=== PATIENT | female | born 1945 | race African-American/Black ===

== ENCOUNTER 2022-12-03 10:09 | Inpatient (IN) | payer MEDICARE, OTHER ==
[2022-12-03] MEDS ORDERED: ACETAMINOPHEN 1000 MG/100 ML BAG IVPB ONE ×2 (10:55→17:29)
[2022-12-03] MEDS ORDERED: VANCOMYCIN 1 GM in D5W (PRE-DOCKED) 1,000 MG/250 ML IVPB ONE (11:26)
[2022-12-03] MEDS ORDERED: PIPERACILLIN/TAZOB 4.5 GM 4.5 GM in DEXTROSE 5%-WATER 100 ML IVPB ONE (11:26)
[2022-12-03] MEDS ORDERED: SODIUM CHLORIDE 0.9% 500 ML INFUS.BAG IV ONE ×2 (11:26→13:10)
[2022-12-03] MEDS ORDERED: ACETAMINOPHEN INJECTION 100 ML IVPB ONE ×2 (11:26→18:16)
[2022-12-03] MEDS ORDERED: NOREPINEPHRINE BITARTRATE 4 MG/4 ML ML IV ONE ×2 (11:28→11:29)
[2022-12-03 11:51] LABS: VENOUS BASE EXCESS -2.2 mmol/L (-2-2); VENOUS O2 SATURATION 57.1 % (70-80); VENOUS PCO2 57.1 mmHg (38-52); VENOUS PH 7.267 (7.310-7.410)
[2022-12-03 11:52] LABS: HEMATOCRIT 35.4 % (32.4-45.2); HEMOGLOBIN 11.3 GM/dL (10.7-15.3); MCH 27.3 pg (25.7-33.7); MCHC 31.9 g/dl (32.0-36.0); MEAN CELL VOLUME 85.5 fl (80-96); MEAN PLT VOLUME 9.9 fl (7.5-11.1); PLATELET COUNT 207 10^3/uL (134-434); RBC 4.14 M/mm3 (3.60-5.2); RDW 15.9 % (11.6-15.6); WHITE BLOOD COUNT 25.9 K/mm3 (4.0-10.0)
[2022-12-03 11:59] LABS: INR 1.46 (0.83-1.09); PROTHROMBIN TIME (PATIENT) 16.8 SEC (9.7-13.0)
[2022-12-03] MEDS ORDERED: NOREPINEPHRINE BITARTRATE 16,000 MCG in SODIUM CHLORIDE 484 ML IV SCH (12:00)
[2022-12-03 12:01] LABS: ACTIVATED PTT 23.7 SECONDS (25.2-36.5)
[2022-12-03 12:15] LABS: CHLORIDE 98 mmol/L (98-107); SODIUM 139 mmol/L (136-145)
[2022-12-03 12:17] LABS: CALCIUM 9.5 mg/dL (8.5-10.1)
[2022-12-03 12:18] LABS: ALBUMIN 2.9 g/dl (3.4-5.0); ANION GAP 16 MMOL/L (8-16); BLOOD UREA NITROGEN 59.3 mg/dL (7-18); CO2 24 mmol/L (21-32); GLUCOSE,RANDOM 101 mg/dL (74-106)
[2022-12-03 12:21] LABS: ANISOCYTOSIS 0; CREATININE 3.6 mg/dL (0.55-1.3); HELMET CELLS 0; HOWELL-JOLLY BODIES 0; MACROCYTOSIS 0; OVALOCYTE 0; ROULEAU 0; SGOT/AST 27 U/L (15-37); SGPT/ALT 36 U/L (13-61); SICKELED CELLS 0; TARGET CELLS 0; TEAR DROP CELLS 0; TOXIC GRANULATION 0
[2022-12-03 12:22] LABS: BILIRUBIN,TOTAL 0.4 mg/dL (0.2-1)
[2022-12-03 12:24] LABS: ALK PHOS 173 U/L (45-117)
[2022-12-03] MEDS ORDERED: NOREPINEPHRINE BITARTRATE 4,000 MCG in DEXTROSE 5%-WATER - 496 ML IV SCH (13:00)
[2022-12-03] MEDS ORDERED: NOREPINEPHRINE BITARTRATE/D5W 8 MG/250 ML BAG IVPB SCH (13:00)
[2022-12-03 13:04] LABS: LACTIC ACID 8.2 mmol/L (0.4-2.0)
[2022-12-03] MEDS ORDERED: VANCOMYCIN/WATER FOR INJ (PEG) 1,000 MG/200 ML BAG IVPB ONE (13:38)
[2022-12-03] MEDS ORDERED: PIPERACILLIN/TAZOB 4.5 GM 4.5 GM/100 ML BAG IVPB ONE (13:38)
[2022-12-03] MEDS ORDERED: SODIUM CHLORIDE 1,000 ML IV STA ×2 (14:31→15:41)
[2022-12-03] MEDS ORDERED: KCL 10 MEQ IVPB 20 MEQ/200 ML INFUS.BAG IVPB ONE (14:47)
[2022-12-03] MEDS: POTASSIUM CHLORIDE 10 MEQ PREMIX IVPB (POTASSIUM RIDER) IVPB SCH ×2 (15:00→19:18)
[2022-12-03 15:42] LABS: CALCIUM 8.6 mg/dL (8.5-10.1)
[2022-12-03 15:43] LABS: BLOOD UREA NITROGEN 60.9 mg/dL (7-18)
[2022-12-03] MEDS ORDERED: VASOPRESSIN 40 UNITS/100 ML BAG IV SCH (15:45)
[2022-12-03 15:46] LABS: CREATININE 3.6 mg/dL (0.55-1.3)
[2022-12-03 17:04] LABS: LACTIC ACID 6.1 mmol/L (0.4-2.0)
[2022-12-03] MEDS ORDERED: PIPERACILLIN/TAZOB 3.375 GM 3.375 GM in DEXTROSE 5%-WATER - 50 ML IVPB SCH (18:00)
[2022-12-03 19:49] LABS: EPI CELLS 27 /uL (0-25.1); HYALINE CASTS 16 /uL (0-3.1); URINE APPEARANCE CLOUDY; URINE BACTERIA 18 /uL (0-1359); URINE BILIRUBIN 1+ (NEGATIVE); URINE COLOR DK YELLOW; URINE GLUCOSE (UA) NEGATIVE (NEGATIVE); URINE KETONE TRACE (NEGATIVE); URINE LEUK ESTERASE NEGATIVE (NEGATIVE); URINE NITRITE NEGATIVE (NEGATIVE); URINE PROTEIN 2+ (NEGATIVE); URINE WBC 21 /uL (0-25.8)
[2022-12-03 19:53] LABS: URINE RBC 34 /uL (0-23.9)
[2022-12-03] MEDS ORDERED: LACTATED RINGERS SOLUTION 1000 ML INFUS.BAG IV ONE (20:18)
[2022-12-03] MEDS ORDERED: PIPERACILLIN/TAZOB 3.375 GM 3.375 GM/50 ML BAG IVPB ONE (20:22)
[2022-12-03] MEDS ORDERED: AZITHROMYCIN IVPB 500 MG/250 ML BAG IVPB ONE (20:22)
[2022-12-03] MEDS: AZITHROMYCIN IVPB 500 MG/250 ML BAG IVPB SCH (20:26)
[2022-12-03] MEDS: INSULIN SLIDING SCALE (NOVOLOG) 1 VIAL SQ SCH (20:47)
[2022-12-03] MEDS: VASOPRESSIN 40 UNITS/100 ML BAG IV SCH (20:47)
[2022-12-03] MEDS: PIPERACILLIN/TAZOB 3.375 GM 3.375 GM in DEXTROSE 5%-WATER - 50 ML IVPB SCH (21:38)
[2022-12-03] MEDS ORDERED: ALBUTEROL SO4 2.5/IPRATROPIUM 0.5 INH SOL 3 ML VIAL.NEB. NEB PRN (23:25)
[2022-12-04] MEDS ORDERED: NOREPINEPHRINE 0.9 % NACL 8 MG/250 ML BAG IVPB SCH (00:43)
[2022-12-04] MEDS: INSULIN SLIDING SCALE (NOVOLOG) 1 VIAL SQ SCH ×6 (00:47→22:00)
[2022-12-04] MEDS: HEPARIN NA (PORCINE) 5,000 UNITS/ML 1ML VIAL SQ SCH ×5 (00:47→22:00)
[2022-12-04] MEDS: PIPERACILLIN/TAZOB 3.375 GM 3.375 GM in DEXTROSE 5%-WATER - 50 ML IVPB SCH ×3 (03:02→17:36)
[2022-12-04 07:45] LABS: HEMOGLOBIN 10.3 GM/dL (10.7-15.3); MCH 27.3 pg (25.7-33.7); MCHC 32.1 g/dl (32.0-36.0); MEAN CELL VOLUME 84.9 fl (80-96); PLATELET COUNT 166 10^3/uL (134-434); RBC 3.77 M/mm3 (3.60-5.2); RDW 15.6 % (11.6-15.6)
[2022-12-04 07:51] LABS: WHITE BLOOD COUNT 34.1 K/mm3 (4.0-10.0)
[2022-12-04 07:57] LABS: CALCIUM 8.5 mg/dL (8.5-10.1)
[2022-12-04 07:58] LABS: ALBUMIN 2.5 g/dl (3.4-5.0); BLOOD UREA NITROGEN 55.2 mg/dL (7-18)
[2022-12-04 08:01] LABS: CREATININE 2.8 mg/dL (0.55-1.3); PHOSPHOROUS 5.9 mg/dL (2.5-4.9)
[2022-12-04 08:02] LABS: TOT PROT 5.6 g/dl (6.4-8.2)
[2022-12-04 08:03] LABS: BILIRUBIN,TOTAL 0.5 mg/dL (0.2-1)
[2022-12-04 08:07] LABS: LACTIC ACID 2.2 mmol/L (0.4-2.0)
[2022-12-04 08:48] LABS: ANISOCYTOSIS 0; HELMET CELLS 0; HOWELL-JOLLY BODIES 0; MACROCYTOSIS 0; OVALOCYTE 0; ROULEAU 0; SICKELED CELLS 0; TARGET CELLS 0; TEAR DROP CELLS 0; TOXIC GRANULATION 0
[2022-12-04] MEDS: AZITHROMYCIN IVPB 500 MG/250 ML BAG IVPB SCH (09:58)
[2022-12-04] MEDS: PANTOPRAZOLE SODIUM 40 MG VIAL IVPUSH SCH (09:58)
[2022-12-04] MEDS ORDERED: VANCOMYCIN/WATER 1,250 MG/250 ML BAG (RESTRICTED TO ID ONLY) IVPB SCH ×2 (10:00→14:30)
[2022-12-04 10:12] LABS: ARTERIAL BLD GAS O2 SATURATION 93.1 % (95-98); ARTERIAL BLOOD GAS BASE EXCESS -3.4 mmol/L (-2-2); ARTERIAL BLOOD GAS PO2 69.2 mmHg (80-100); ARTERIAL BLOOD GAS pH 7.347 (7.350-7.450)
[2022-12-04] MEDS ORDERED: LACTATED RINGERS SOLUTION 1,000 ML/1,000 ML INFUS.BAG IV SCH (11:30)
[2022-12-04] MEDS ORDERED: VANCOMYCIN/WATER FOR INJ (PEG) 1,000 MG/200 ML BAG IVPB ONE (13:00)
[2022-12-04] MEDS: CHLORHEXIDINE GLUCONATE 4% CLEANSER FOR DECOLONIZATION TP SCH (22:00)
[2022-12-04] MEDS: MUPIROCIN 2% TOPICAL OINTMENT FOR DECOLONIZATION NS SCH (22:00)
[2022-12-04] MEDS: VASOPRESSIN 40 UNITS/100 ML BAG IV SCH (23:25)
[2022-12-05] MEDS: PIPERACILLIN/TAZOB 3.375 GM 3.375 GM in DEXTROSE 5%-WATER - 50 ML IVPB SCH ×3 (02:00→17:37)
[2022-12-05] MEDS: INSULIN SLIDING SCALE (NOVOLOG) 1 VIAL SQ SCH ×4 (06:45→22:56)
[2022-12-05] MEDS: HEPARIN NA (PORCINE) 5,000 UNITS/ML 1ML VIAL SQ SCH ×3 (06:45→22:55)
[2022-12-05 08:40] LABS: HEMATOCRIT 30.3 % (32.4-45.2); HEMOGLOBIN 9.5 GM/dL (10.7-15.3); MCH 26.6 pg (25.7-33.7); MCHC 31.2 g/dl (32.0-36.0); MEAN CELL VOLUME 85.2 fl (80-96); MEAN PLT VOLUME 9.7 fl (7.5-11.1); PLATELET COUNT 141 10^3/uL (134-434); RBC 3.56 M/mm3 (3.60-5.2); RDW 16.1 % (11.6-15.6)
[2022-12-05 08:53] LABS: WHITE BLOOD COUNT 39.4 K/mm3 (4.0-10.0)
[2022-12-05 09:23] LABS: CALCIUM 8.7 mg/dL (8.5-10.1)
[2022-12-05 09:24] LABS: ALBUMIN 2.2 g/dl (3.4-5.0); BLOOD UREA NITROGEN 50.6 mg/dL (7-18); MAGNESIUM 2.4 mg/dL (1.8-2.4)
[2022-12-05] MEDS: MUPIROCIN 2% TOPICAL OINTMENT FOR DECOLONIZATION NS SCH ×2 (09:25→22:55)
[2022-12-05] MEDS: AZITHROMYCIN IVPB 500 MG/250 ML BAG IVPB SCH (09:25)
[2022-12-05] MEDS: PANTOPRAZOLE SODIUM 40 MG VIAL IVPUSH SCH (09:25)
[2022-12-05 09:27] LABS: CREATININE 1.8 mg/dL (0.55-1.3); PHOSPHOROUS 3.4 mg/dL (2.5-4.9)
[2022-12-05 09:28] LABS: BILIRUBIN,TOTAL 0.5 mg/dL (0.2-1); TOT PROT 5.3 g/dl (6.4-8.2)
[2022-12-05] MEDS: FUROSEMIDE 40 MG/4 ML INJECTABLE VIAL IVPUSH SCH (09:42)
[2022-12-05 10:29] LABS: ANISOCYTOSIS 0; HELMET CELLS 0; HOWELL-JOLLY BODIES 0; MACROCYTOSIS 0; OVALOCYTE 0; ROULEAU 0; SICKELED CELLS 0; TARGET CELLS 0; TEAR DROP CELLS 0; TOXIC GRANULATION 0
[2022-12-05] MEDS ORDERED: VANCOMYCIN/WATER FOR INJ (PEG) 1,000 MG/200 ML BAG IVPB ONE (12:36)
[2022-12-05] MEDS: CHLORHEXIDINE GLUCONATE 4% CLEANSER FOR DECOLONIZATION TP SCH (22:55)
[2022-12-06] MEDS: PIPERACILLIN/TAZOB 3.375 GM 3.375 GM in DEXTROSE 5%-WATER - 50 ML IVPB SCH ×3 (02:00→17:27)
[2022-12-06] MEDS: HEPARIN NA (PORCINE) 5,000 UNITS/ML 1ML VIAL SQ SCH ×3 (06:26→21:14)
[2022-12-06] MEDS: INSULIN SLIDING SCALE (NOVOLOG) 1 VIAL SQ SCH ×4 (06:27→21:21)
[2022-12-06 07:32] LABS: HEMATOCRIT 31.2 % (32.4-45.2); HEMOGLOBIN 9.8 GM/dL (10.7-15.3); MCH 26.7 pg (25.7-33.7); MCHC 31.4 g/dl (32.0-36.0); MEAN CELL VOLUME 85.1 fl (80-96); MEAN PLT VOLUME 9.9 fl (7.5-11.1); PLATELET COUNT 126 10^3/uL (134-434); RBC 3.67 M/mm3 (3.60-5.2); RDW 15.8 % (11.6-15.6)
[2022-12-06 07:56] LABS: CALCIUM 8.7 mg/dL (8.5-10.1)
[2022-12-06 08:00] LABS: CREATININE 1.2 mg/dL (0.55-1.3); PHOSPHOROUS 2.4 mg/dL (2.5-4.9)
[2022-12-06] MEDS: FUROSEMIDE 40 MG/4 ML INJECTABLE VIAL IVPUSH SCH (09:22)
[2022-12-06] MEDS: POLYETHYLENE GLYCOL (HEALTHYLAX) 3350 17 GM PACKET PO SCH ×2 (09:22→21:14)
[2022-12-06] MEDS: PANTOPRAZOLE SODIUM 40 MG VIAL IVPUSH SCH (09:23)
[2022-12-06] MEDS: AZITHROMYCIN IVPB 500 MG/250 ML BAG IVPB SCH (09:23)
[2022-12-06] MEDS: MUPIROCIN 2% TOPICAL OINTMENT FOR DECOLONIZATION NS SCH ×2 (11:23→21:14)
[2022-12-06] MEDS ORDERED: VANCOMYCIN/WATER 1250 MG 1,250 MG/250 ML BAG IVPB ONE (12:00)
[2022-12-06] MEDS: SENNOSIDES 8.6MG TABLET (FP) PO SCH (21:14)
[2022-12-06] MEDS: CHLORHEXIDINE GLUCONATE 4% CLEANSER FOR DECOLONIZATION TP SCH (21:14)
[2022-12-07] MEDS: PIPERACILLIN/TAZOB 3.375 GM 3.375 GM in DEXTROSE 5%-WATER - 50 ML IVPB SCH ×4 (01:00→21:19)
[2022-12-07] MEDS: HEPARIN NA (PORCINE) 5,000 UNITS/ML 1ML VIAL SQ SCH ×3 (05:15→21:19)
[2022-12-07] MEDS: INSULIN SLIDING SCALE (NOVOLOG) 1 VIAL SQ SCH ×4 (06:35→22:00)
[2022-12-07 07:16] LABS: HEMATOCRIT 30.6 % (32.4-45.2); HEMOGLOBIN 9.8 GM/dL (10.7-15.3); MCH 26.9 pg (25.7-33.7); MCHC 31.9 g/dl (32.0-36.0); MEAN CELL VOLUME 84.2 fl (80-96); MEAN PLT VOLUME 9.6 fl (7.5-11.1); PLATELET COUNT 125 10^3/uL (134-434); RBC 3.64 M/mm3 (3.60-5.2); WHITE BLOOD COUNT 16.3 K/mm3 (4.0-10.0)
[2022-12-07 07:36] LABS: INR 1.11 (0.83-1.09); PROTHROMBIN TIME (PATIENT) 12.8 SEC (9.7-13.0)
[2022-12-07 07:39] LABS: CALCIUM 9.1 mg/dL (8.5-10.1)
[2022-12-07 07:40] LABS: ALBUMIN 2.1 g/dl (3.4-5.0); BLOOD UREA NITROGEN 23.6 mg/dL (7-18); MAGNESIUM 1.9 mg/dL (1.8-2.4)
[2022-12-07 07:43] LABS: PHOSPHOROUS 2.6 mg/dL (2.5-4.9)
[2022-12-07 07:44] LABS: BILIRUBIN,TOTAL 0.6 mg/dL (0.2-1); TOT PROT 5.6 g/dl (6.4-8.2)
[2022-12-07] MEDS: PANTOPRAZOLE SODIUM 40 MG VIAL IVPUSH SCH (09:09)
[2022-12-07] MEDS: FUROSEMIDE 40 MG/4 ML INJECTABLE VIAL IVPUSH SCH (09:10)
[2022-12-07] MEDS: AZITHROMYCIN IVPB 500 MG/250 ML BAG IVPB SCH (09:19)
[2022-12-07] MEDS: POLYETHYLENE GLYCOL (HEALTHYLAX) 3350 17 GM PACKET PO SCH ×2 (09:19→21:20)
[2022-12-07] MEDS ORDERED: PIPERACILLIN/TAZOB 3.375 GM 3.375 GM in DEXTROSE 5%-WATER - 50 ML IVPB SCH (10:15)
[2022-12-07] MEDS: MUPIROCIN 2% TOPICAL OINTMENT FOR DECOLONIZATION NS SCH ×2 (10:16→22:00)
[2022-12-07] MEDS ORDERED: ACETAMINOPHEN 325 MG TABLET (FP) PO ONE (21:02)
[2022-12-07] MEDS: amLODIPine BESYLATE 10 MG TABLET (FP) PO SCH (21:18)
[2022-12-07] MEDS: SENNOSIDES 8.6MG TABLET (FP) PO SCH (21:20)
[2022-12-07] MEDS: CHLORHEXIDINE GLUCONATE 4% CLEANSER FOR DECOLONIZATION TP SCH (21:20)
[2022-12-08] MEDS: PIPERACILLIN/TAZOB 3.375 GM 3.375 GM in DEXTROSE 5%-WATER - 50 ML IVPB SCH ×4 (03:07→22:54)
[2022-12-08] MEDS: HEPARIN NA (PORCINE) 5,000 UNITS/ML 1ML VIAL SQ SCH ×3 (05:49→22:54)
[2022-12-08] MEDS: INSULIN SLIDING SCALE (NOVOLOG) 1 VIAL SQ SCH ×4 (06:14→22:55)
[2022-12-08] MEDS ORDERED: ALBUTEROL SO4 2.5/IPRATROPIUM 0.5 INH SOL 3 ML VIAL.NEB. NEB PRN (07:25)
[2022-12-08] MEDS: LOSARTAN POTASSIUM 50 MG TABLET PO SCH (09:14)
[2022-12-08] MEDS: amLODIPine BESYLATE 10 MG TABLET (FP) PO SCH (09:14)
[2022-12-08] MEDS: FUROSEMIDE 40 MG/4 ML INJECTABLE VIAL IVPUSH SCH (09:15)
[2022-12-08] MEDS: PANTOPRAZOLE SODIUM 40 MG VIAL IVPUSH SCH (09:15)
[2022-12-08] MEDS ORDERED: MUPIROCIN 2% TOPICAL OINTMENT FOR DECOLONIZATION NS SCH (10:00)
[2022-12-08] MEDS ORDERED: POLYETHYLENE GLYCOL (HEALTHYLAX) 3350 17 GM PACKET PO SCH (10:00)
[2022-12-08] MEDS: AZITHROMYCIN IVPB 500 MG/250 ML BAG IVPB SCH (10:10)
[2022-12-08 11:46] LABS: HEMATOCRIT 31.6 % (32.4-45.2); HEMOGLOBIN 10.1 GM/dL (10.7-15.3); MCH 26.9 pg (25.7-33.7); MEAN CELL VOLUME 84.1 fl (80-96); MEAN PLT VOLUME 9.5 fl (7.5-11.1); PLATELET COUNT 158 10^3/uL (134-434); RBC 3.75 M/mm3 (3.60-5.2); RDW 15.6 % (11.6-15.6); WHITE BLOOD COUNT 15.8 K/mm3 (4.0-10.0)
[2022-12-08 12:12] LABS: ANISOCYTOSIS 0; HELMET CELLS 0; HOWELL-JOLLY BODIES 0; MACROCYTOSIS 0; OVALOCYTE 0; ROULEAU 0; SICKELED CELLS 0; TARGET CELLS 0; TEAR DROP CELLS 0; TOXIC GRANULATION 0
[2022-12-08 12:57] LABS: ALBUMIN 2.1 g/dl (3.4-5.0); BLOOD UREA NITROGEN 25.6 mg/dL (7-18)
[2022-12-08 12:58] LABS: CALCIUM 8.6 mg/dL (8.5-10.1); MAGNESIUM 1.9 mg/dL (1.8-2.4)
[2022-12-08 13:01] LABS: CREATININE 1.1 mg/dL (0.55-1.3); PHOSPHOROUS 2.8 mg/dL (2.5-4.9)
[2022-12-08 13:02] LABS: TOT PROT 5.9 g/dl (6.4-8.2)
[2022-12-08 13:03] LABS: BILIRUBIN,TOTAL 0.5 mg/dL (0.2-1)
[2022-12-08] MEDS: ACETAMINOPHEN 1000 MG/100 ML BAG IVPB PRN ×2 (14:22→22:59)
[2022-12-08] MEDS: ALBUTEROL SO4 2.5/IPRATROPIUM 0.5 INH SOL 3 ML VIAL.NEB. NEB SCH ×3 (14:39→20:05)
[2022-12-08] MEDS ORDERED: SENNOSIDES 8.6MG TABLET (FP) PO PRN (16:58)
[2022-12-08] MEDS ORDERED: SENNOSIDES 8.6MG TABLET (FP) PO SCH (22:00)
[2022-12-08] MEDS ORDERED: CHLORHEXIDINE GLUCONATE 4% CLEANSER FOR DECOLONIZATION TP SCH (22:00)
[2022-12-09] MEDS: PIPERACILLIN/TAZOB 3.375 GM 3.375 GM in DEXTROSE 5%-WATER - 50 ML IVPB SCH ×4 (03:41→22:54)
[2022-12-09] MEDS: INSULIN SLIDING SCALE (NOVOLOG) 1 VIAL SQ SCH ×4 (06:13→22:42)
[2022-12-09] MEDS: HEPARIN NA (PORCINE) 5,000 UNITS/ML 1ML VIAL SQ SCH ×3 (06:20→21:26)
[2022-12-09] MEDS: ACETAMINOPHEN 1000 MG/100 ML BAG IVPB PRN ×2 (06:21→12:40)
[2022-12-09] MEDS: FUROSEMIDE 40 MG/4 ML INJECTABLE VIAL IVPUSH SCH (09:02)
[2022-12-09] MEDS: amLODIPine BESYLATE 10 MG TABLET (FP) PO SCH (09:02)
[2022-12-09] MEDS: LOSARTAN POTASSIUM 50 MG TABLET PO SCH (09:02)
[2022-12-09] MEDS: PANTOPRAZOLE SODIUM 40 MG VIAL IVPUSH SCH (09:03)
[2022-12-09] MEDS: AZITHROMYCIN IVPB 500 MG/250 ML BAG IVPB SCH (09:03)
[2022-12-09 09:14] LABS: HEMATOCRIT 31.3 % (32.4-45.2); HEMOGLOBIN 10.2 GM/dL (10.7-15.3); MCH 27.4 pg (25.7-33.7); MCHC 32.5 g/dl (32.0-36.0); MEAN CELL VOLUME 84.3 fl (80-96); MEAN PLT VOLUME 10.4 fl (7.5-11.1); PLATELET COUNT 262 10^3/uL (134-434); RBC 3.71 M/mm3 (3.60-5.2); RDW 15.7 % (11.6-15.6)
[2022-12-09 09:24] LABS: ALBUMIN 2.1 g/dl (3.4-5.0); CALCIUM 8.7 mg/dL (8.5-10.1); CREATININE 1.1 mg/dL (0.55-1.3); PHOSPHOROUS 3.3 mg/dL (2.5-4.9)
[2022-12-09 09:25] LABS: MAGNESIUM 1.9 mg/dL (1.8-2.4)
[2022-12-09 09:26] LABS: TOT PROT 5.9 g/dl (6.4-8.2)
[2022-12-09 09:27] LABS: BILIRUBIN,TOTAL 0.6 mg/dL (0.2-1)
[2022-12-09] MEDS: ALBUTEROL SO4 2.5/IPRATROPIUM 0.5 INH SOL 3 ML VIAL.NEB. NEB SCH ×4 (09:47→20:05)
[2022-12-09 10:07] LABS: ANISOCYTOSIS 0; HELMET CELLS 0; HOWELL-JOLLY BODIES 0; MACROCYTOSIS 0; OVALOCYTE 0; ROULEAU 0; SICKELED CELLS 0; TARGET CELLS 0; TEAR DROP CELLS 0; TOXIC GRANULATION 0
[2022-12-09 10:48] LABS: WHITE BLOOD COUNT 31.8 K/mm3 (4.0-10.0)
[2022-12-09] MEDS ORDERED: SODIUM CHLORIDE 1,000 ML IV SCH (11:00)
[2022-12-09] MEDS ORDERED: ACETAMINOPHEN 1000 MG/100 ML BAG IVPB PRN (21:10)
[2022-12-10] MEDS: PIPERACILLIN/TAZOB 3.375 GM 3.375 GM in DEXTROSE 5%-WATER - 50 ML IVPB SCH ×4 (02:55→15:03)
[2022-12-10] MEDS: ACETAMINOPHEN 325 MG TABLET (FP) PO PRN ×2 (03:41→22:04)
[2022-12-10] MEDS: INSULIN SLIDING SCALE (NOVOLOG) 1 VIAL SQ SCH ×4 (06:22→22:27)
[2022-12-10] MEDS: HEPARIN NA (PORCINE) 5,000 UNITS/ML 1ML VIAL SQ SCH ×3 (06:25→22:02)
[2022-12-10] MEDS: ALBUTEROL SO4 2.5/IPRATROPIUM 0.5 INH SOL 3 ML VIAL.NEB. NEB SCH ×4 (08:00→20:27)
[2022-12-10 08:32] LABS: HEMATOCRIT 29.5 % (32.4-45.2); HEMOGLOBIN 9.5 GM/dL (10.7-15.3); MCH 27.1 pg (25.7-33.7); MCHC 32.1 g/dl (32.0-36.0); MEAN CELL VOLUME 84.5 fl (80-96); MEAN PLT VOLUME 10.2 fl (7.5-11.1); PLATELET COUNT 241 10^3/uL (134-434); RDW 15.8 % (11.6-15.6); WHITE BLOOD COUNT 20.3 K/mm3 (4.0-10.0)
[2022-12-10 08:43] LABS: ALBUMIN 2.2 g/dl (3.4-5.0); BLOOD UREA NITROGEN 24.7 mg/dL (7-18); CALCIUM 9.1 mg/dL (8.5-10.1)
[2022-12-10 08:45] LABS: CREATININE 1.2 mg/dL (0.55-1.3)
[2022-12-10 08:46] LABS: BILIRUBIN,TOTAL 0.6 mg/dL (0.2-1); TOT PROT 6.1 g/dl (6.4-8.2)
[2022-12-10 09:24] LABS: ANISOCYTOSIS 2+; MACROCYTOSIS 0
[2022-12-10] MEDS: LOSARTAN POTASSIUM 50 MG TABLET PO SCH (09:37)
[2022-12-10] MEDS: PANTOPRAZOLE SODIUM 40 MG VIAL IVPUSH SCH (09:37)
[2022-12-10] MEDS: amLODIPine BESYLATE 10 MG TABLET (FP) PO SCH (09:37)
[2022-12-10] MEDS: AZITHROMYCIN IVPB 500 MG/250 ML BAG IVPB SCH (09:38)
[2022-12-10] MEDS: guaiFENesin/D-METHORPHAN TAB.ER.12H PO SCH ×2 (13:09→22:03)
[2022-12-10] MEDS: AMOX TR/POT CLAV 875MG/125MG TABLETS (FP) PO SCH (17:16)
[2022-12-11] MEDS: HEPARIN NA (PORCINE) 5,000 UNITS/ML 1ML VIAL SQ SCH ×3 (06:22→21:31)
[2022-12-11] MEDS: INSULIN SLIDING SCALE (NOVOLOG) 1 VIAL SQ SCH ×4 (06:25→21:52)
[2022-12-11] MEDS: ALBUTEROL SO4 2.5/IPRATROPIUM 0.5 INH SOL 3 ML VIAL.NEB. NEB SCH ×4 (07:20→19:41)
[2022-12-11 08:34] LABS: HEMOGLOBIN 9.3 GM/dL (10.7-15.3); MCHC 31.9 g/dl (32.0-36.0); MEAN CELL VOLUME 84.4 fl (80-96); PLATELET COUNT 284 10^3/uL (134-434); RBC 3.44 M/mm3 (3.60-5.2); RDW 15.4 % (11.6-15.6); WHITE BLOOD COUNT 19.9 K/mm3 (4.0-10.0)
[2022-12-11 08:54] LABS: ALBUMIN 2.2 g/dl (3.4-5.0); BLOOD UREA NITROGEN 18.1 mg/dL (7-18); CALCIUM 9.1 mg/dL (8.5-10.1)
[2022-12-11 08:56] LABS: CREATININE 0.9 mg/dL (0.55-1.3)
[2022-12-11 08:57] LABS: BILIRUBIN,TOTAL 0.4 mg/dL (0.2-1); TOT PROT 6.2 g/dl (6.4-8.2)
[2022-12-11] MEDS: LOSARTAN POTASSIUM 50 MG TABLET PO SCH (09:14)
[2022-12-11] MEDS: AMOX TR/POT CLAV 875MG/125MG TABLETS (FP) PO SCH (09:14)
[2022-12-11] MEDS: amLODIPine BESYLATE 10 MG TABLET (FP) PO SCH (09:15)
[2022-12-11] MEDS: AZITHROMYCIN 250 MG TABLET PO SCH (09:15)
[2022-12-11] MEDS: guaiFENesin/D-METHORPHAN TAB.ER.12H PO SCH ×2 (09:15→21:31)
[2022-12-11] MEDS: PANTOPRAZOLE 40 MG TABLET PO SCH (09:15)
[2022-12-11 09:57] LABS: ANISOCYTOSIS 2+; MACROCYTOSIS 0
[2022-12-11] MEDS ORDERED: SODIUM CHLORIDE 1,000 ML IV STA (14:52)
[2022-12-11] MEDS: PIPERACILLIN/TAZOB 3.375 GM 3.375 GM in DEXTROSE 5%-WATER - 50 ML IVPB SCH ×2 (14:53→21:29)
[2022-12-11] MEDS: ACETAMINOPHEN 325 MG TABLET (FP) PO PRN (21:32)
[2022-12-12] MEDS: PIPERACILLIN/TAZOB 3.375 GM 3.375 GM in DEXTROSE 5%-WATER - 50 ML IVPB SCH ×2 (06:16→11:19)
[2022-12-12] MEDS: INSULIN SLIDING SCALE (NOVOLOG) 1 VIAL SQ SCH ×3 (06:17→16:47)
[2022-12-12] MEDS: HEPARIN NA (PORCINE) 5,000 UNITS/ML 1ML VIAL SQ SCH ×3 (06:17→22:37)
[2022-12-12] MEDS: ALBUTEROL SO4 2.5/IPRATROPIUM 0.5 INH SOL 3 ML VIAL.NEB. NEB SCH ×4 (08:12→20:05)
[2022-12-12] MEDS: FUROSEMIDE 40 MG/4 ML INJECTABLE VIAL IVPUSH SCH (10:38)
[2022-12-12] MEDS: AZITHROMYCIN 250 MG TABLET PO SCH (10:38)
[2022-12-12] MEDS: PANTOPRAZOLE 40 MG TABLET PO SCH (10:38)
[2022-12-12] MEDS: LOSARTAN POTASSIUM 50 MG TABLET PO SCH (10:38)
[2022-12-12] MEDS: amLODIPine BESYLATE 10 MG TABLET (FP) PO SCH (10:39)
[2022-12-12] MEDS: guaiFENesin/D-METHORPHAN TAB.ER.12H PO SCH ×2 (10:39→22:38)
[2022-12-12] MEDS: FUROSEMIDE 40 MG TABLET (FP) PO SCH (11:22)
[2022-12-12] MEDS: AMOX TR/POT CLAV 875MG/125MG TABLETS (FP) PO SCH ×2 (11:22→17:47)
[2022-12-12 13:53] LABS: ALBUMIN 2.3 g/dl (3.4-5.0); BILIRUBIN,TOTAL 0.4 mg/dL (0.2-1); BLOOD UREA NITROGEN 13.3 mg/dL (7-18); CALCIUM 9.5 mg/dL (8.5-10.1); CREATININE 0.9 mg/dL (0.55-1.3); TOT PROT 6.4 g/dl (6.4-8.2)
[2022-12-12 16:29] LABS: EPI CELLS >36 /uL (0-25.1); HYALINE CASTS 1 /uL (0-3.1); PH,URINE 5.5 (5.0-8.0); URINE APPEARANCE Clear; URINE BACTERIA 17 /uL (0-1359); URINE BILIRUBIN Negative (NEGATIVE); URINE COLOR Yellow; URINE GLUCOSE (UA) Negative (NEGATIVE); URINE KETONE Negative (NEGATIVE); URINE LEUK ESTERASE Negative (NEGATIVE); URINE NITRITE Negative (NEGATIVE); URINE PROTEIN 100 (NEGATIVE); URINE UROBILINOGEN 0.2 mg/dL (0.2-1.0); URINE WBC 29 /uL (0-25.8)
[2022-12-12 16:30] LABS: URINE RBC 83.1 /uL (0-23.9); YEAST PRESENT (NEGATIVE)
[2022-12-13] MEDS: HEPARIN NA (PORCINE) 5,000 UNITS/ML 1ML VIAL SQ SCH ×3 (05:38→21:43)
[2022-12-13] MEDS: INSULIN SLIDING SCALE (NOVOLOG) 1 VIAL SQ SCH ×5 (05:39→21:47)
[2022-12-13] MEDS: ACETAMINOPHEN 325 MG TABLET (FP) PO PRN ×3 (05:40→21:46)
[2022-12-13] MEDS: ALBUTEROL SO4 2.5/IPRATROPIUM 0.5 INH SOL 3 ML VIAL.NEB. NEB SCH ×4 (08:12→20:28)
[2022-12-13] MEDS: amLODIPine BESYLATE 10 MG TABLET (FP) PO SCH (09:25)
[2022-12-13] MEDS: LOSARTAN POTASSIUM 50 MG TABLET PO SCH (09:25)
[2022-12-13] MEDS: guaiFENesin/D-METHORPHAN TAB.ER.12H PO SCH ×2 (09:25→21:43)
[2022-12-13] MEDS: AZITHROMYCIN 250 MG TABLET PO SCH (09:25)
[2022-12-13] MEDS: PANTOPRAZOLE 40 MG TABLET PO SCH (09:25)
[2022-12-13] MEDS: AMOX TR/POT CLAV 875MG/125MG TABLETS (FP) PO SCH ×2 (09:25→16:39)
[2022-12-13] MEDS: FUROSEMIDE 40 MG TABLET (FP) PO SCH (09:25)
[2022-12-13 12:43] VITALS: BMI 37.5
[2022-12-14] MEDS: HEPARIN NA (PORCINE) 5,000 UNITS/ML 1ML VIAL SQ SCH ×3 (05:46→22:34)
[2022-12-14] MEDS: INSULIN SLIDING SCALE (NOVOLOG) 1 VIAL SQ SCH ×4 (06:10→22:33)
[2022-12-14] MEDS: AMOX TR/POT CLAV 875MG/125MG TABLETS (FP) PO SCH ×2 (08:27→17:36)
[2022-12-14] MEDS: ALBUTEROL SO4 2.5/IPRATROPIUM 0.5 INH SOL 3 ML VIAL.NEB. NEB SCH ×4 (08:35→19:56)
[2022-12-14] MEDS: FUROSEMIDE 40 MG TABLET (FP) PO SCH (09:16)
[2022-12-14] MEDS: LOSARTAN POTASSIUM 50 MG TABLET PO SCH (09:17)
[2022-12-14] MEDS: PANTOPRAZOLE 40 MG TABLET PO SCH (09:17)
[2022-12-14] MEDS: amLODIPine BESYLATE 10 MG TABLET (FP) PO SCH (09:17)
[2022-12-14] MEDS: guaiFENesin/D-METHORPHAN TAB.ER.12H PO SCH ×2 (09:18→22:34)
[2022-12-14 16:55] LABS: BASO % 0.7 % (0-2.0); EOS % 0.1 % (0-4.5); HEMOGLOBIN 9.5 GM/dL (10.7-15.3); LYMPH % 25.2 % (8-40); MCH 27.5 pg (25.7-33.7); MCHC 32.6 g/dl (32.0-36.0); MEAN CELL VOLUME 84.5 fl (80-96); MEAN PLT VOLUME 9.3 fl (7.5-11.1); MONO % 4.9 % (3.8-10.2); NEUT % 69.1 % (42.8-82.8); PLATELET COUNT 349 10^3/uL (134-434); RBC 3.44 M/mm3 (3.60-5.2); RDW 16.1 % (11.6-15.6); WHITE BLOOD COUNT 16.7 K/mm3 (4.0-10.0)
[2022-12-14 17:09] LABS: CALCIUM 9.1 mg/dL (8.5-10.1)
[2022-12-14 17:10] LABS: ALBUMIN 2.2 g/dl (3.4-5.0); BLOOD UREA NITROGEN 16.3 mg/dL (7-18)
[2022-12-14 17:13] LABS: CREATININE 1.1 mg/dL (0.55-1.3)
[2022-12-14 17:15] LABS: BILIRUBIN,TOTAL 0.4 mg/dL (0.2-1); TOT PROT 6.8 g/dl (6.4-8.2)
[2022-12-14] MEDS: ACETAMINOPHEN 325 MG TABLET (FP) PO PRN (22:34)
[2022-12-15] MEDS: ACETAMINOPHEN 325 MG TABLET (FP) PO PRN ×2 (05:12→22:26)
[2022-12-15] MEDS: INSULIN SLIDING SCALE (NOVOLOG) 1 VIAL SQ SCH ×4 (06:37→22:31)
[2022-12-15] MEDS: HEPARIN NA (PORCINE) 5,000 UNITS/ML 1ML VIAL SQ SCH ×3 (06:43→22:18)
[2022-12-15] MEDS: ALBUTEROL SO4 2.5/IPRATROPIUM 0.5 INH SOL 3 ML VIAL.NEB. NEB SCH ×4 (07:40→20:06)
[2022-12-15 08:29] LABS: ALBUMIN 2.2 g/dl (3.4-5.0); BLOOD UREA NITROGEN 16.7 mg/dL (7-18); CALCIUM 9.4 mg/dL (8.5-10.1)
[2022-12-15 08:33] LABS: CREATININE 0.9 mg/dL (0.55-1.3)
[2022-12-15 08:35] LABS: BILIRUBIN,TOTAL 0.8 mg/dL (0.2-1); TOT PROT 6.5 g/dl (6.4-8.2)
[2022-12-15] MEDS: AMOX TR/POT CLAV 875MG/125MG TABLETS (FP) PO SCH ×2 (08:43→16:54)
[2022-12-15] MEDS: LOSARTAN POTASSIUM 50 MG TABLET PO SCH (09:32)
[2022-12-15] MEDS: guaiFENesin/D-METHORPHAN TAB.ER.12H PO SCH ×2 (09:33→22:19)
[2022-12-15] MEDS: amLODIPine BESYLATE 10 MG TABLET (FP) PO SCH (09:33)
[2022-12-15] MEDS: FUROSEMIDE 40 MG TABLET (FP) PO SCH (09:33)
[2022-12-15] MEDS: PANTOPRAZOLE 40 MG TABLET PO SCH (09:33)
[2022-12-16] MEDS: INSULIN SLIDING SCALE (NOVOLOG) 1 VIAL SQ SCH ×4 (07:44→21:35)
[2022-12-16] MEDS: ALBUTEROL SO4 2.5/IPRATROPIUM 0.5 INH SOL 3 ML VIAL.NEB. NEB SCH ×4 (07:45→20:59)
[2022-12-16 08:36] LABS: HEMATOCRIT 27.1 % (32.4-45.2); HEMOGLOBIN 8.7 GM/dL (10.7-15.3); MCH 27.3 pg (25.7-33.7); MCHC 32.1 g/dl (32.0-36.0); MEAN CELL VOLUME 84.9 fl (80-96); MEAN PLT VOLUME 10.1 fl (7.5-11.1); RBC 3.19 M/mm3 (3.60-5.2); RDW 15.6 % (11.6-15.6)
[2022-12-16 08:37] LABS: WHITE BLOOD COUNT 16.3 K/mm3 (4.0-10.0)
[2022-12-16 08:38] LABS: PLATELET COUNT 365 10^3/uL (134-434)
[2022-12-16] MEDS: AMOX TR/POT CLAV 875MG/125MG TABLETS (FP) PO SCH ×2 (08:45→16:53)
[2022-12-16 09:32] LABS: ANISOCYTOSIS 0; MACROCYTOSIS 0
[2022-12-16 09:42] LABS: CALCIUM 9.1 mg/dL (8.5-10.1)
[2022-12-16 09:43] LABS: ALBUMIN 2.3 g/dl (3.4-5.0); BLOOD UREA NITROGEN 20.7 mg/dL (7-18); MAGNESIUM 1.9 mg/dL (1.8-2.4)
[2022-12-16 09:46] LABS: CREATININE 1.1 mg/dL (0.55-1.3); PHOSPHOROUS 2.8 mg/dL (2.5-4.9)
[2022-12-16 09:48] LABS: BILIRUBIN,TOTAL 0.3 mg/dL (0.2-1); TOT PROT 6.6 g/dl (6.4-8.2)
[2022-12-16] MEDS: PANTOPRAZOLE 40 MG TABLET PO SCH (10:06)
[2022-12-16] MEDS: amLODIPine BESYLATE 10 MG TABLET (FP) PO SCH (10:06)
[2022-12-16] MEDS: LOSARTAN POTASSIUM 50 MG TABLET PO SCH (10:06)
[2022-12-16] MEDS: guaiFENesin/D-METHORPHAN TAB.ER.12H PO SCH ×2 (10:06→21:27)
[2022-12-16] MEDS: FUROSEMIDE 40 MG TABLET (FP) PO SCH (10:06)
[2022-12-16] MEDS: HEPARIN NA (PORCINE) 5,000 UNITS/ML 1ML VIAL SQ SCH ×3 (16:53→21:27)
[2022-12-17] MEDS: HEPARIN NA (PORCINE) 5,000 UNITS/ML 1ML VIAL SQ SCH ×4 (05:50→21:38)
[2022-12-17] MEDS: INSULIN SLIDING SCALE (NOVOLOG) 1 VIAL SQ SCH ×4 (06:25→21:39)
[2022-12-17] MEDS: ALBUTEROL SO4 2.5/IPRATROPIUM 0.5 INH SOL 3 ML VIAL.NEB. NEB SCH ×4 (07:35→20:41)
[2022-12-17] MEDS: AMOX TR/POT CLAV 875MG/125MG TABLETS (FP) PO SCH ×2 (09:00→18:04)
[2022-12-17] MEDS: PANTOPRAZOLE 40 MG TABLET PO SCH (09:58)
[2022-12-17] MEDS: LOSARTAN POTASSIUM 50 MG TABLET PO SCH (09:58)
[2022-12-17] MEDS: amLODIPine BESYLATE 10 MG TABLET (FP) PO SCH (09:58)
[2022-12-17] MEDS: FUROSEMIDE 40 MG TABLET (FP) PO SCH (09:58)
[2022-12-17] MEDS: guaiFENesin/D-METHORPHAN TAB.ER.12H PO SCH ×2 (09:58→21:39)
[2022-12-17] MEDS: ACETAMINOPHEN 325 MG TABLET (FP) PO PRN ×2 (10:10→18:18)
[2022-12-18] MEDS: ACETAMINOPHEN 325 MG TABLET (FP) PO PRN ×2 (01:26→09:28)
[2022-12-18] MEDS: HEPARIN NA (PORCINE) 5,000 UNITS/ML 1ML VIAL SQ SCH ×2 (06:31→13:24)
[2022-12-18] MEDS: INSULIN SLIDING SCALE (NOVOLOG) 1 VIAL SQ SCH ×3 (06:32→17:05)
[2022-12-18 08:32] LABS: HEMATOCRIT 27.1 % (32.4-45.2); HEMOGLOBIN 8.7 GM/dL (10.7-15.3); MCH 27.2 pg (25.7-33.7); MEAN PLT VOLUME 9.7 fl (7.5-11.1); PLATELET COUNT 393 10^3/uL (134-434); RBC 3.19 M/mm3 (3.60-5.2); RDW 15.5 % (11.6-15.6); WHITE BLOOD COUNT 14.8 K/mm3 (4.0-10.0)
[2022-12-18] MEDS: AMOX TR/POT CLAV 875MG/125MG TABLETS (FP) PO SCH ×2 (08:37→16:56)
[2022-12-18] MEDS: ALBUTEROL SO4 2.5/IPRATROPIUM 0.5 INH SOL 3 ML VIAL.NEB. NEB SCH ×3 (08:38→15:44)
[2022-12-18 08:54] LABS: BLOOD UREA NITROGEN 18.7 mg/dL (7-18); CALCIUM 9.4 mg/dL (8.5-10.1)
[2022-12-18 08:55] LABS: ALBUMIN 2.4 g/dl (3.4-5.0); MAGNESIUM 1.8 mg/dL (1.8-2.4)
[2022-12-18 08:57] LABS: PHOSPHOROUS 3.4 mg/dL (2.5-4.9)
[2022-12-18 08:58] LABS: CREATININE 1.1 mg/dL (0.55-1.3)
[2022-12-18 08:59] LABS: BILIRUBIN,TOTAL 0.5 mg/dL (0.2-1); TOT PROT 6.8 g/dl (6.4-8.2)
[2022-12-18] MEDS: FUROSEMIDE 40 MG TABLET (FP) PO SCH (09:25)
[2022-12-18] MEDS: amLODIPine BESYLATE 10 MG TABLET (FP) PO SCH (09:25)
[2022-12-18] MEDS: LOSARTAN POTASSIUM 50 MG TABLET PO SCH (09:25)
[2022-12-18] MEDS: PANTOPRAZOLE 40 MG TABLET PO SCH (09:25)
[2022-12-18] MEDS: guaiFENesin/D-METHORPHAN TAB.ER.12H PO SCH (09:26)
[2022-12-18 10:35] LABS: ANISOCYTOSIS 1+; MACROCYTOSIS 0
[2022-12-18 14:58] VITALS: BP 132/65; PULSE 102; RESP 22; TEMP 98.6
== END 2022-12-18 18:17 | disposition home or self-care (01) | DRG 871 ==
LOC: JER 10:09 → JERBED 13:42 → JICU 12-04 00:10 → J4W 12-07 18:00
PROVIDERS: ADMIT Internal Medicine; ATTEND Internal Medicine
PROC: 05HM33Z Insertion of Infusion Device into Right Internal Jugular Vein, Percutaneous Approach (ICD-10-PCS; principal; 2022-12-03)
DX: A41.89 Other specified sepsis (principal); J18.9 Pneumonia, unspecified organism; J96.01 Acute respiratory failure with hypoxia; J96.02 Acute respiratory failure with hypercapnia; E87.20 Acidosis, unspecified; N17.9 Acute kidney failure, unspecified; R65.20 Severe sepsis without septic shock; I10 Essential (primary) hypertension; E11.9 Type 2 diabetes mellitus without complications; J44.9 Chronic obstructive pulmonary disease, unspecified; M10.9 Gout, unspecified; I95.9 Hypotension, unspecified; R00.0 Tachycardia, unspecified; R50.9 Fever, unspecified; M06.9 Rheumatoid arthritis, unspecified; D72.829 Elevated white blood cell count, unspecified; N28.89 Other specified disorders of kidney and ureter; R31.9 Hematuria, unspecified; R19.7 Diarrhea, unspecified; M25.561 Pain in right knee; E66.9 Obesity, unspecified; Z68.38 Body mass index [BMI] 38.0-38.9, adult
CPT/HCPCS: 0241U-QW; 36415; 36600; 71045-TC-FY; 71275-TC; 73030-TC-RT-FY; 74178-TC; 76775-TC; 78306-TC; 80048; 80053; 81003; 82272; 82550; 82553; 82570; 82803; 82962; 83036; 83605; 83615; 83735; 84100; 84156; 84300; 84484; 85025; 85027; 85610; 85730; 86850; 86900; 86901; 87040; 87070; 87077; 87081; 87086; 87205; 87899; 93005; 93010; 93306-TC; 94010; 94640; 94761; 97116-GP; 97162-GP; 99291; A9503; C9803-CS; G0480; J1644; J3490; Q9967; U0003; U0005

== ENCOUNTER 2025-04-03 09:41 | Inpatient (IN) | payer OTHER ==
[2025-04-03] MEDS ORDERED: methylPREDNISolone NA SUCC 125 MG/2 ML VIAL ONE (11:00)
[2025-04-03] MEDS ORDERED: FUROSEMIDE 40 MG/4 ML INJECTABLE VIAL ONE (11:00)
[2025-04-03 11:52] LABS: ABSOLUTE IMMATURE GRANULOCYTES 0.08 x10^3/uL (0.0-0.031); BASOPHILS # 0.06 x10^3/uL (0.01-0.08); EOSINOPHIL % 0.4 % (0.7-5.8); EOSINOPHILS # 0.04 x10^3/uL (0.04-0.36); HEMATOCRIT 37.6 % (34.1-44.9); HEMOGLOBIN 11.3 g/dL (11.2-15.7); MCHC 30.1 g/dl (32.2-35.5); MEAN CELL VOLUME 88.9 fl (79.4-94.8); MEAN PLT VOLUME 12.1 fl (9.4-12.3); MONOCYTE # 0.66 x10^3/uL (0.24-0.86); MONOCYTE % 6.5 % (4.7-12.5); PLATELET COUNT 205 x10^3/uL (182-369); RDW 14.8 % (12.4-16.6)
[2025-04-03 11:59] LABS: VENOUS BASE EXCESS 0.5 mmol/L (-2-2); VENOUS O2 SATURATION 32.8 % (70-80); VENOUS PH 7.2 (7.310-7.410)
[2025-04-03 12:02] LABS: VENOUS PCO2 80.1 mmHg (38-52)
[2025-04-03 12:14] LABS: MAGNESIUM 2.2 mg/dL (1.8-2.4)
[2025-04-03 12:18] LABS: ALBUMIN 3.3 g/dl (3.4-5.0); CALCIUM 9.7 mg/dL (8.5-10.1)
[2025-04-03 12:19] LABS: BLOOD UREA NITROGEN 20.7 mg/dL (7-18)
[2025-04-03 12:21] LABS: CREATININE 1.5 mg/dL (0.55-1.3)
[2025-04-03 12:22] LABS: N-TERMINAL BNP 744.2 pg/ml (5-450)
[2025-04-03 12:23] LABS: BILIRUBIN,TOTAL 0.2 mg/dL (0.2-1); TOT PROT 7.1 g/dl (6.4-8.2)
[2025-04-03] MEDS: methylPREDNISolone NA SUCC 125 MG/2 ML VIAL IVPUSH ONE (13:28)
[2025-04-03] MEDS: FUROSEMIDE 40 MG/4 ML INJECTABLE VIAL IVPUSH ONE (13:28)
[2025-04-03] MEDS: ALBUTEROL SO4 2.5/IPRATROPIUM 0.5 INH SOL 3 ML VIAL.NEB. NEB SCH (13:28)
[2025-04-03] MEDS ORDERED: ALBUTEROL SO4 2.5/IPRATROPIUM 0.5 INH SOL 3 ML VIAL.NEB. NEB ONE (13:37)
[2025-04-03 14:06] LABS: ARTERIAL BLD GAS O2 SATURATION 89.2 % (95-98); ARTERIAL BLOOD GAS BASE EXCESS 3.1 mmol/L (-2-2); ARTERIAL BLOOD GAS PO2 72.2 mmHg (80-100)
[2025-04-03 14:10] LABS: ALLENS TEST POSITIVE; ARTERIAL BLOOD GAS pH 7.179 (7.350-7.450)
[2025-04-03 16:11] LABS: ARTERIAL BLD GAS O2 SATURATION 98.7 % (95-98); ARTERIAL BLOOD GAS BASE EXCESS 3.3 mmol/L (-2-2); ARTERIAL BLOOD GAS PO2 174.3 mmHg (80-100)
[2025-04-03 16:26] LABS: ALLENS TEST POSITIVE; VENT MODE S/T
[2025-04-03 16:27] LABS: VENT RATE 16
[2025-04-03 16:29] LABS: ARTERIAL BLOOD GAS pH 7.191 (7.350-7.450)
[2025-04-03] MEDS ORDERED: RAPID SEQUENCE INTUBATION KIT NR ONE (17:45)
[2025-04-03] MEDS ORDERED: ROCURONIUM BROMIDE 50 MG/5 ML SYRINGE ONE (17:46)
[2025-04-03] MEDS ORDERED: PROPOFOL 1,000,000 MCG/100 ML VIAL ONE (19:26)
[2025-04-03] MEDS ORDERED: MIDAZOLAM HCL 5 MG/1 ML Single Dose Vial ONE (19:41)
[2025-04-03] MEDS: MIDAZOLAM HCL 5 MG/1 ML Single Dose Vial IM ONE (19:46)
[2025-04-03] MEDS ORDERED: FENTANYL CITRATE/PF 50 MCG/ML VIAL ONE ×2 (19:56→20:33)
[2025-04-03] MEDS ORDERED: LIDOCAINE HCL 1%, 10 MG/ML (20ML VIAL) ONE (20:15)
[2025-04-03] MEDS: PROPOFOL 1,000,000 MCG/100 ML VIAL IVPB SCH (20:42)
[2025-04-03] MEDS ORDERED: LORazepam 2 MG/ML SDV VIAL ONE (21:44)
[2025-04-03] MEDS: LORazepam 2 MG/ML SDV VIAL IVPUSH ONE (21:47)
[2025-04-03] MEDS ORDERED: fentaNYL CITRATE 250 MCG/5 ML VIAL ONE (22:31)
[2025-04-03] MEDS: MUPIROCIN 2% TOPICAL OINTMENT FOR DECOLONIZATION NS SCH (22:45)
[2025-04-04] MEDS: FENTANYL CITRATE/PF 50 MCG/ML VIAL IVPUSH ONE (00:13)
[2025-04-04] MEDS ORDERED: ALBUTEROL SO4 0.5 % INH SOLN 2.5 MG/0.5 ML VIAL.NEB. NEB PRN (00:25)
[2025-04-04] MEDS ORDERED: CEFTRIAXONE 1 GM in DEXTROSE 5%-WATER - 50 ML IVPB ONE (00:27)
[2025-04-04 00:48] LABS: ARTERIAL BLD GAS O2 SATURATION 98.2 % (95-98); ARTERIAL BLOOD GAS BASE EXCESS 6.8 mmol/L (-2-2); ARTERIAL BLOOD GAS PO2 104.7 mmHg (80-100); ARTERIAL BLOOD GAS pH 7.512 (7.350-7.450)
[2025-04-04 00:49] LABS: ALLENS TEST POSITIVE; VENT MODE A/C
[2025-04-04 00:50] LABS: VENT RATE 20
[2025-04-04] MEDS: FENTANYL NS IVPB 500 MCG/100 ML BAG IVPB SCH (00:52)
[2025-04-04 00:57] LABS: HEMATOCRIT 33.8 % (34.1-44.9); HEMOGLOBIN 10.5 g/dL (11.2-15.7); MCHC 31.1 g/dl (32.2-35.5); MEAN CELL VOLUME 85.1 fl (79.4-94.8); MEAN PLT VOLUME 11.4 fl (9.4-12.3); PLATELET COUNT 187 x10^3/uL (182-369); RDW 14.5 % (12.4-16.6)
[2025-04-04 01:02] LABS: EPI CELLS 10 /uL (0-25.1); HYALINE CASTS 2 /uL (0-3.1); PH,URINE 5.5 (5.0-8.0); URINE APPEARANCE CLEAR; URINE BACTERIA 11 /uL (0-1359); URINE BILIRUBIN NEGATIVE (NEGATIVE); URINE COLOR YELLOW; URINE GLUCOSE (UA) NEGATIVE (NEGATIVE); URINE KETONE NEGATIVE (NEGATIVE); URINE LEUK ESTERASE NEGATIVE (NEGATIVE); URINE NITRITE NEGATIVE (NEGATIVE); URINE PROTEIN 3+ (NEGATIVE); URINE RBC 1754 /uL (0-23.9); URINE UROBILINOGEN 0.2 mg/dL (0.2-1.0); URINE WBC 17 /uL (0-25.8)
[2025-04-04] MEDS: FUROSEMIDE 40 MG/4 ML INJECTABLE VIAL IVPUSH ONE ×3 (01:02→21:22)
[2025-04-04 01:05] LABS: INR 1.23 (0.83-1.09); PROTHROMBIN TIME (PATIENT) 13.5 SEC (9.7-13.0)
[2025-04-04] MEDS: ALBUTEROL SO4 2.5/IPRATROPIUM 0.5 INH SOL 3 ML VIAL.NEB. NEB SCH ×2 (01:05→08:07)
[2025-04-04] MEDS: CEFTRIAXONE 1 G/50 ML PREMIX 50 ML IVPB ONE (01:11)
[2025-04-04 01:16] LABS: POTASSIUM 3.6 mmol/L (3.5-5.1)
[2025-04-04 01:17] LABS: POTASSIUM 3.5 mmol/L (3.5-5.1)
[2025-04-04 01:18] LABS: BLOOD UREA NITROGEN 26.7 mg/dL (7-18); CALCIUM 9.7 mg/dL (8.5-10.1); MAGNESIUM 1.7 mg/dL (1.8-2.4)
[2025-04-04 01:21] LABS: BLOOD UREA NITROGEN 26.1 mg/dL (7-18); CALCIUM 9.7 mg/dL (8.5-10.1); PHOSPHOROUS 2.1 mg/dL (2.5-4.9)
[2025-04-04 01:22] LABS: CREATININE 1.6 mg/dL (0.55-1.3)
[2025-04-04 01:23] LABS: BILIRUBIN,TOTAL 0.4 mg/dL (0.2-1); TOT PROT 6.4 g/dl (6.4-8.2)
[2025-04-04 01:25] LABS: CREATININE 1.6 mg/dL (0.55-1.3)
[2025-04-04] MEDS: MAGNESIUM SULFATE IN WATER 2 GM/50 ML IVPB IVPB ONE (03:48)
[2025-04-04] MEDS: POTASSIUM PHOSPHATE 15 MM in SODIUM CHLORIDE 100 ML IVPB ONE (04:24)
[2025-04-04] MEDS: HEPARIN NA (PORCINE) 5,000 UNITS/ML 1ML VIAL SQ SCH (06:12)
[2025-04-04] MEDS: INSULIN ASPART SLIDING SCALE (NOVOLOG) 1 VIAL SQ SCH (06:17)
[2025-04-04] MEDS ORDERED: AZITHROMYCIN IVPB 500 MG/250 ML BAG IVPB SCH (10:02)
[2025-04-04 10:07] LABS: HEMATOCRIT 31.2 % (34.1-44.9); HEMOGLOBIN 9.7 g/dL (11.2-15.7); MCHC 31.1 g/dl (32.2-35.5); MEAN CELL VOLUME 84.6 fl (79.4-94.8); MEAN PLT VOLUME 12.2 fl (9.4-12.3); PLATELET COUNT 188 x10^3/uL (182-369); RDW 14.6 % (12.4-16.6)
[2025-04-04] MEDS: PANTOPRAZOLE SODIUM 40 MG VIAL IVPUSH SCH (10:10)
[2025-04-04] MEDS: methylPREDNISolone NA SUCC 40 MG/1 ML VIAL IVPUSH SCH ×2 (10:10→15:49)
[2025-04-04] MEDS: DEXTROSE 5%-NORMAL SALINE 1,000 ML IV SCH (10:11)
[2025-04-04] MEDS: AZITHROMYCIN IVPB 500 MG in DEXTROSE 5%-WATER - 250 ML IVPB SCH (10:12)
[2025-04-04 11:16] LABS: POTASSIUM 3.5 mmol/L (3.5-5.1)
[2025-04-04 11:25] LABS: ALBUMIN 2.8 g/dl (3.4-5.0); BLOOD UREA NITROGEN 29.6 mg/dL (7-18); CALCIUM 9.7 mg/dL (8.5-10.1); MAGNESIUM 2.1 mg/dL (1.8-2.4)
[2025-04-04 11:28] LABS: CREATININE 1.9 mg/dL (0.55-1.3); PHOSPHOROUS 3.9 mg/dL (2.5-4.9)
[2025-04-04 11:29] LABS: BILIRUBIN,TOTAL 0.5 mg/dL (0.2-1); TOT PROT 5.8 g/dl (6.4-8.2)
[2025-04-04] MEDS: DEXMEDETOMIDINE PREMIX 400 MCG/100 ML BAG IVPB SCH (11:30)
[2025-04-04] MEDS ORDERED: FUROSEMIDE 40 MG/4 ML INJECTABLE VIAL ONE (11:36)
[2025-04-04] MEDS: AZITHROMYCIN IVPB 500 MG/250 ML BAG IVPB SCH (11:45)
[2025-04-04 13:54] LABS: EPI CELLS 13 /uL (0-25.1); HYALINE CASTS 4 /uL (0-3.1); URINE APPEARANCE CLEAR; URINE BACTERIA 4 /uL (0-1359); URINE BILIRUBIN NEGATIVE (NEGATIVE); URINE COLOR YELLOW; URINE GLUCOSE (UA) NEGATIVE (NEGATIVE); URINE KETONE NEGATIVE (NEGATIVE); URINE LEUK ESTERASE NEGATIVE (NEGATIVE); URINE NITRITE NEGATIVE (NEGATIVE); URINE PROTEIN 2+ (NEGATIVE); URINE RBC 372 /uL (0-23.9); URINE UROBILINOGEN 0.2 mg/dL (0.2-1.0); URINE WBC 24 /uL (0-25.8)
[2025-04-04] MEDS ORDERED: FUROSEMIDE 40 MG/4 ML INJECTABLE VIAL IVPUSH SCH (14:00)
[2025-04-04 15:24] LABS: ARTERIAL BLD GAS O2 SATURATION 98.2 % (95-98); ARTERIAL BLOOD GAS BASE EXCESS 6.4 mmol/L (-2-2); ARTERIAL BLOOD GAS PO2 120.8 mmHg (80-100); ARTERIAL BLOOD GAS pH 7.365 (7.350-7.450)
[2025-04-04 15:28] LABS: ALLENS TEST POSITIVE
[2025-04-04 15:29] LABS: VENT MODE S/T; VENT RATE 12
[2025-04-04] MEDS: CHLORHEXIDINE GLUCONATE 4% CLEANSER FOR DECOLONIZATION TP SCH (21:20)
[2025-04-05 00:49] LABS: ARTERIAL BLD GAS O2 SATURATION 85.7 % (95-98); ARTERIAL BLOOD GAS BASE EXCESS 7.6 mmol/L (-2-2); ARTERIAL BLOOD GAS PO2 52.7 mmHg (80-100); ARTERIAL BLOOD GAS pH 7.379 (7.350-7.450)
[2025-04-05 00:55] LABS: ALLENS TEST POSITIVE
[2025-04-05 00:56] LABS: VENT MODE ST; VENT RATE 12
[2025-04-05 01:25] LABS: ARTERIAL BLD GAS O2 SATURATION 97.8 % (95-98); ARTERIAL BLOOD GAS BASE EXCESS 7.3 mmol/L (-2-2); ARTERIAL BLOOD GAS PO2 112.6 mmHg (80-100); ARTERIAL BLOOD GAS pH 7.351 (7.350-7.450)
[2025-04-05 01:26] LABS: ALLENS TEST POSITIVE
[2025-04-05 01:27] LABS: VENT MODE 5T; VENT RATE 12
[2025-04-05] MEDS: LABETALOL HCL 20 MG/4 ML VIAL IVPUSH ONE (04:13)
[2025-04-05] MEDS ORDERED: LABETALOL HCL 20 MG/4 ML VIAL ONE (04:40)
[2025-04-05] MEDS: FUROSEMIDE 40 MG/4 ML INJECTABLE VIAL IVPUSH SCH ×2 (06:15→10:05)
[2025-04-05 06:59] LABS: HEMOGLOBIN 11.6 g/dL (11.2-15.7); MCHC 31.4 g/dl (32.2-35.5); MEAN CELL VOLUME 84.7 fl (79.4-94.8); MEAN PLT VOLUME 12.4 fl (9.4-12.3); PLATELET COUNT 207 x10^3/uL (182-369); RDW 14.4 % (12.4-16.6)
[2025-04-05 07:18] LABS: POTASSIUM 4.3 mmol/L (3.5-5.1)
[2025-04-05 07:21] LABS: CALCIUM 9.8 mg/dL (8.5-10.1)
[2025-04-05 07:23] LABS: ALBUMIN 3.2 g/dl (3.4-5.0); BLOOD UREA NITROGEN 41.2 mg/dL (7-18)
[2025-04-05 07:26] LABS: CREATININE 2.1 mg/dL (0.55-1.3)
[2025-04-05 07:28] LABS: BILIRUBIN,TOTAL 0.4 mg/dL (0.2-1)
[2025-04-05] MEDS: amLODIPine BESYLATE 10 MG TABLET (FP) PO SCH (08:03)
[2025-04-05] MEDS: VALSARTAN 160 MG TABLET PO SCH (09:01)
[2025-04-05] MEDS ORDERED: PATIENT'S OWN MEDICATION (NON-FORMULARY) (Valsartan [Valsartan] 320 MG Tablet) PO SCH (10:00)
[2025-04-05] MEDS: ALLOPURINOL 100 MG TABLET (FP) PO SCH (12:47)
[2025-04-05] MEDS: COLCHICINE 0.6 MG TAB PO SCH (12:47)
[2025-04-05] MEDS ORDERED: ALBUTEROL SO4 0.5 % INH SOLN 2.5 MG/0.5 ML VIAL.NEB. NEB PRN (18:38)
[2025-04-05] MEDS: ALBUTEROL SO4 2.5/IPRATROPIUM 0.5 INH SOL 3 ML VIAL.NEB. NEB SCH (20:00)
[2025-04-05] MEDS: HEPARIN NA (PORCINE) 5,000 UNITS/ML 1ML VIAL SQ SCH (21:56)
[2025-04-05] MEDS: INSULIN ASPART SLIDING SCALE (NOVOLOG) 1 VIAL SQ SCH (21:56)
[2025-04-05] MEDS ORDERED: CHLORHEXIDINE GLUCONATE 4% CLEANSER FOR DECOLONIZATION TP SCH (22:00)
[2025-04-05] MEDS ORDERED: MUPIROCIN 2% TOPICAL OINTMENT FOR DECOLONIZATION NS SCH (22:00)
[2025-04-06] MEDS: VALSARTAN 160 MG TABLET PO SCH (09:26)
[2025-04-06] MEDS: methylPREDNISolone NA SUCC 40 MG/1 ML VIAL IVPUSH SCH (09:26)
[2025-04-06] MEDS: FUROSEMIDE 40 MG/4 ML INJECTABLE VIAL IVPUSH SCH (09:26)
[2025-04-06] MEDS: PANTOPRAZOLE SODIUM 40 MG VIAL IVPUSH SCH (09:26)
[2025-04-06] MEDS: amLODIPine BESYLATE 10 MG TABLET (FP) PO SCH (09:27)
[2025-04-06] MEDS: ACETAMINOPHEN 325 MG TABLET (FP) PO ONE (09:39)
[2025-04-06] MEDS ORDERED: methylPREDNISolone NA SUCC 40 MG/1 ML VIAL IVPUSH SCH (10:00)
[2025-04-06] MEDS: ACETAMINOPHEN 1000 MG/100 ML BAG IVPB ONE (10:34)
[2025-04-06] MEDS: COLCHICINE 0.6 MG TAB PO SCH (12:23)
[2025-04-06] MEDS: ALLOPURINOL 100 MG TABLET (FP) PO SCH (12:23)
[2025-04-06 20:06] LABS: ANTIGLOMERULAR BASEMENT MEN.AB <0.2 units (0.0-0.9)
[2025-04-07 09:13] LABS: HEMATOCRIT 36.2 % (34.1-44.9); HEMOGLOBIN 11.2 g/dL (11.2-15.7); MCHC 30.9 g/dl (32.2-35.5); MEAN CELL VOLUME 84.6 fl (79.4-94.8); MEAN PLT VOLUME 12.4 fl (9.4-12.3); PLATELET COUNT 180 x10^3/uL (182-369); RDW 14.8 % (12.4-16.6)
[2025-04-07 09:32] LABS: POTASSIUM 4.1 mmol/L (3.5-5.1)
[2025-04-07 09:34] LABS: ALBUMIN 3.1 g/dl (3.4-5.0); CALCIUM 9.7 mg/dL (8.5-10.1)
[2025-04-07 09:35] LABS: BLOOD UREA NITROGEN 46.8 mg/dL (7-18); MAGNESIUM 2.2 mg/dL (1.8-2.4)
[2025-04-07 09:38] LABS: PHOSPHOROUS 4.1 mg/dL (2.5-4.9)
[2025-04-07 09:39] LABS: BILIRUBIN,TOTAL 0.5 mg/dL (0.2-1); TOT PROT 6.8 g/dl (6.4-8.2)
[2025-04-07] MEDS: ACETAMINOPHEN 325 MG TABLET (FP) PO PRN (11:00)
[2025-04-07 15:37] VITALS: RESP 18
[2025-04-08 10:56] LABS: HEMATOCRIT 35.2 % (34.1-44.9); HEMOGLOBIN 10.9 g/dL (11.2-15.7); MEAN CELL VOLUME 84.6 fl (79.4-94.8); MEAN PLT VOLUME 12.7 fl (9.4-12.3); PLATELET COUNT 175 x10^3/uL (182-369); RDW 15.1 % (12.4-16.6)
[2025-04-08 11:14] LABS: POTASSIUM 4.2 mmol/L (3.5-5.1)
[2025-04-08 11:16] LABS: BLOOD UREA NITROGEN 51.1 mg/dL (7-18); CALCIUM 9.6 mg/dL (8.5-10.1)
[2025-04-08 11:19] LABS: CREATININE 2.1 mg/dL (0.55-1.3)
[2025-04-08 11:21] LABS: BILIRUBIN,TOTAL 0.3 mg/dL (0.2-1); TOT PROT 6.5 g/dl (6.4-8.2)
[2025-04-09 10:22] LABS: N-TERMINAL BNP 179.3 pg/ml (5-450)
[2025-04-09 15:06] LABS: C-ANCA <1:20 titer (Neg:<1:20)
[2025-04-09 16:05] VITALS: BMI 47.7
[2025-04-10 09:12] LABS: HEMATOCRIT 36.5 % (34.1-44.9); HEMOGLOBIN 11.5 g/dL (11.2-15.7); MCHC 31.5 g/dl (32.2-35.5); MEAN CELL VOLUME 82.8 fl (79.4-94.8); MEAN PLT VOLUME 12.9 fl (9.4-12.3); PLATELET COUNT 197 x10^3/uL (182-369); RDW 14.7 % (12.4-16.6)
[2025-04-10] MEDS: PANTOPRAZOLE 40 MG TABLET PO SCH (10:33)
[2025-04-10] MEDS: predniSONE 20 MG TABLET (UD) PO SCH (10:33)
[2025-04-10] MEDS: hydrALAZINE HCL 10 MG TABLET PO SCH (10:38)
[2025-04-10 10:49] LABS: POTASSIUM 4.4 mmol/L (3.5-5.1)
[2025-04-10 10:56] LABS: ALBUMIN 3.3 g/dl (3.4-5.0); CALCIUM 10.1 mg/dL (8.5-10.1)
[2025-04-10 10:57] LABS: BLOOD UREA NITROGEN 52.1 mg/dL (7-18); MAGNESIUM 2.3 mg/dL (1.8-2.4)
[2025-04-10 11:00] LABS: CREATININE 1.8 mg/dL (0.55-1.3); PHOSPHOROUS 3.8 mg/dL (2.5-4.9)
[2025-04-10 11:01] LABS: BILIRUBIN,TOTAL 0.3 mg/dL (0.2-1); TOT PROT 6.8 g/dl (6.4-8.2)
[2025-04-10] MEDS: guaiFENesin/D-METHORPHAN TAB.ER.12H PO SCH (14:53)
[2025-04-10] MEDS: ATORVASTATIN CA 40 MG TABLET (FP) PO SCH (21:39)
[2025-04-11 09:30] LABS: HEMATOCRIT 35.3 % (34.1-44.9); HEMOGLOBIN 10.9 g/dL (11.2-15.7); MCHC 30.9 g/dl (32.2-35.5); MEAN CELL VOLUME 83.6 fl (79.4-94.8); MEAN PLT VOLUME 12.9 fl (9.4-12.3); PLATELET COUNT 202 x10^3/uL (182-369); RDW 14.5 % (12.4-16.6)
[2025-04-11 09:53] LABS: POTASSIUM 4.4 mmol/L (3.5-5.1)
[2025-04-11 09:59] LABS: ALBUMIN 3.2 g/dl (3.4-5.0)
[2025-04-11 10:00] LABS: CALCIUM 9.5 mg/dL (8.5-10.1)
[2025-04-11 10:01] LABS: BLOOD UREA NITROGEN 54.9 mg/dL (7-18)
[2025-04-11 10:02] LABS: TOT PROT 6.4 g/dl (6.4-8.2)
[2025-04-11 10:03] LABS: MAGNESIUM 2.2 mg/dL (1.8-2.4)
[2025-04-11 10:04] LABS: CREATININE 1.7 mg/dL (0.55-1.3); PHOSPHOROUS 3.9 mg/dL (2.5-4.9)
[2025-04-11 10:05] LABS: BILIRUBIN,TOTAL 0.2 mg/dL (0.2-1)
[2025-04-11 15:25] VITALS: BP 144/78; PULSE 91; TEMP 98.6
== END 2025-04-11 17:49 | DRG 208 ==
LOC: JER 09:41 → JERBED 15:07 → JICU 22:03 → J5S 04-05 18:19
PROVIDERS: ADMIT Internal Medicine Pulmonary Disease; ATTEND Internal Medicine
PROC: 02HV33Z Insertion of Infusion Device into Superior Vena Cava, Percutaneous Approach (ICD-10-PCS; principal; 2025-04-03)
PROC: 5A1935Z Respiratory Ventilation, Less than 24 Consecutive Hours (ICD-10-PCS; 2025-04-03)
PROC: B548ZZA Ultrasonography of Superior Vena Cava, Guidance (ICD-10-PCS; 2025-04-04)
PROC: 0BH17EZ Insertion of Endotracheal Airway into Trachea, Via Natural or Artificial Opening (ICD-10-PCS; 2025-04-04)
DX: J44.1 Chronic obstructive pulmonary disease with (acute) exacerbation (principal); I50.33 Acute on chronic diastolic (congestive) heart failure; J96.21 Acute and chronic respiratory failure with hypoxia; J96.22 Acute and chronic respiratory failure with hypercapnia; N17.9 Acute kidney failure, unspecified; I13.0 Hypertensive heart and chronic kidney disease with heart failure and stage 1 through stage 4 chronic kidney disease, or unspecified chronic kidney disease; I16.1 Hypertensive emergency; Z68.42 Body mass index [BMI] 45.0-49.9, adult; Z99.81 Dependence on supplemental oxygen; E11.9 Type 2 diabetes mellitus without complications; N18.9 Chronic kidney disease, unspecified; E66.813 Obesity, class 3; M10.9 Gout, unspecified
CPT/HCPCS: 0241U-QW; 36415; 36600; 71045-TC-FY; 76775-TC; 80048; 80053; 80061; 81003; 82803; 82962; 83036; 83516; 83520; 83605; 83735; 83880; 84100; 84443; 84484; 85025; 85027; 85610; 86038; 86225; 86256; 87040; 87070; 87086; 87205; 93005; 93010; 93306-TC; 93970-TC; 94002; 94010; 94640; 94660; 97116-GP; 97162-GP; 99291; J1644

== ENCOUNTER 2025-05-10 12:37 | Inpatient (IN) | payer OTHER ==
[2025-05-10] MEDS ORDERED: NITROGLYCERIN SUBLINGUAL 1/150 0.4 MG TAB ONE (13:01)
[2025-05-10] MEDS ORDERED: FUROSEMIDE 40 MG/4 ML INJECTABLE VIAL ONE ×2 (13:16→17:56)
[2025-05-10] MEDS: FUROSEMIDE 40 MG/4 ML INJECTABLE VIAL IVPUSH ONE ×2 (13:19→18:01)
[2025-05-10] MEDS: NITROGLYCERIN SUBLINGUAL 1/150 0.4 MG TAB SL ONE (13:19)
[2025-05-10 13:30] LABS: HEMOGLOBIN 9.7 g/dL (11.2-15.7)
[2025-05-10 13:31] LABS: HEMATOCRIT 31.5 % (34.1-44.9); MCHC 30.8 g/dl (32.2-35.5); MEAN CELL VOLUME 85.6 fl (79.4-94.8); MEAN PLT VOLUME 12.1 fl (9.4-12.3); PLATELET COUNT 230 x10^3/uL (182-369); RDW 14.9 % (12.4-16.6)
[2025-05-10 13:32] LABS: VENOUS BASE EXCESS 4.6 mmol/L (-2-2); VENOUS O2 SATURATION 69.1 % (70-80); VENOUS PH 7.263 (7.310-7.410)
[2025-05-10 13:33] LABS: VENOUS PCO2 75.9 mmHg (38-52)
[2025-05-10 13:38] LABS: INR 1.08 (0.83-1.09); PROTHROMBIN TIME (PATIENT) 11.8 SEC (9.7-13.0)
[2025-05-10 13:41] LABS: ACTIVATED PTT 30.8 SECONDS (25.2-36.5)
[2025-05-10 13:56] LABS: POTASSIUM 4.4 mmol/L (3.5-5.1)
[2025-05-10 13:59] LABS: CALCIUM 9.9 mg/dL (8.5-10.1)
[2025-05-10 14:00] LABS: ALBUMIN 3.2 g/dl (3.4-5.0); BLOOD UREA NITROGEN 32.4 mg/dL (7-18); MAGNESIUM 2.2 mg/dL (1.8-2.4)
[2025-05-10 14:02] LABS: CREATININE 1.9 mg/dL (0.55-1.3)
[2025-05-10 14:03] LABS: BILIRUBIN,TOTAL 0.3 mg/dL (0.2-1)
[2025-05-10 14:04] LABS: TOT PROT 7.2 g/dl (6.4-8.2)
[2025-05-10 14:07] LABS: N-TERMINAL BNP 399.2 pg/ml (5-450)
[2025-05-10] MEDS ORDERED: ALBUTEROL SO4 2.5/IPRATROPIUM 0.5 INH SOL 3 ML VIAL.NEB. NEB ONE ×2 (14:07→14:20)
[2025-05-10] MEDS: ALBUTEROL SO4 2.5/IPRATROPIUM 0.5 INH SOL 3 ML VIAL.NEB. NEB SCH (14:08)
[2025-05-10 15:55] LABS: ARTERIAL BLD GAS O2 SATURATION 98.3 % (95-98); ARTERIAL BLOOD GAS BASE EXCESS -1.1 mmol/L (-2-2); ARTERIAL BLOOD GAS PO2 139.4 mmHg (80-100); ARTERIAL BLOOD GAS pH 7.236 (7.350-7.450); O2 CONTENT 1.86 % vol
[2025-05-10 15:57] LABS: ALLENS TEST POSITIVE; VENT MODE S/T; VENT RATE 6
[2025-05-10] MEDS ORDERED: CEFTRIAXONE 1 GM/50 ML BAG ONE (16:17)
[2025-05-10] MEDS ORDERED: CEFTRIAXONE 2 GM-D5W BAG 2 GM/50 ML BAG IVPB ONE (16:24)
[2025-05-10] MEDS: CEFTRIAXONE 2 GM-D5W BAG 2 GM/50 ML BAG IVPB SCH (16:32)
[2025-05-10] MEDS ORDERED: AZITHROMYCIN IVPB 500 MG/250 ML BAG IVPB ONE (17:09)
[2025-05-10] MEDS: AZITHROMYCIN IVPB 500 MG/250 ML BAG IVPB ONE (17:16)
[2025-05-10] MEDS: ACETAMINOPHEN 1000 MG/100 ML BAG IVPB PRN (18:55)
[2025-05-10] MEDS ORDERED: ACETAMINOPHEN INJECTION 100 ML ONE (19:00)
[2025-05-10] MEDS: HEPARIN NA (PORCINE) 5,000 UNITS/ML 1ML VIAL SQ SCH (21:47)
[2025-05-10] MEDS: ATORVASTATIN CA 40 MG TABLET (FP) PO SCH (21:47)
[2025-05-11] MEDS: FUROSEMIDE 40 MG/4 ML INJECTABLE VIAL IVPUSH SCH (05:48)
[2025-05-11 09:13] LABS: HEMATOCRIT 32.1 % (34.1-44.9); HEMOGLOBIN 9.7 g/dL (11.2-15.7); MCHC 30.2 g/dl (32.2-35.5); MEAN CELL VOLUME 86.8 fl (79.4-94.8); MEAN PLT VOLUME 12.6 fl (9.4-12.3); PLATELET COUNT 227 x10^3/uL (182-369); RDW 15.2 % (12.4-16.6)
[2025-05-11 09:32] LABS: POTASSIUM 4.2 mmol/L (3.5-5.1)
[2025-05-11 09:38] LABS: BLOOD UREA NITROGEN 30.5 mg/dL (7-18)
[2025-05-11 09:40] LABS: CREATININE 1.8 mg/dL (0.55-1.3); PHOSPHOROUS 4.4 mg/dL (2.5-4.9)
[2025-05-11 09:41] LABS: BILIRUBIN,TOTAL 0.4 mg/dL (0.2-1); TOT PROT 7.1 g/dl (6.4-8.2)
[2025-05-11] MEDS: ALLOPURINOL 100 MG TABLET (FP) PO SCH (09:47)
[2025-05-11] MEDS: PANTOPRAZOLE 40 MG TABLET PO SCH (09:47)
[2025-05-11] MEDS: AZITHROMYCIN IVPB 250 MG in DEXTROSE 5%-WATER - 250 ML IVPB SCH (12:33)
[2025-05-12] MEDS: ALBUTEROL SO4 2.5/IPRATROPIUM 0.5 INH SOL 3 ML VIAL.NEB. NEB PRN (05:00)
[2025-05-12 10:20] LABS: HEMATOCRIT 32.1 % (34.1-44.9); HEMOGLOBIN 9.7 g/dL (11.2-15.7); MCHC 30.2 g/dl (32.2-35.5); MEAN CELL VOLUME 86.8 fl (79.4-94.8); MEAN PLT VOLUME 12.3 fl (9.4-12.3); PLATELET COUNT 238 x10^3/uL (182-369)
[2025-05-12 10:43] LABS: POTASSIUM 4.3 mmol/L (3.5-5.1)
[2025-05-12 10:44] LABS: ALBUMIN 3.1 g/dl (3.4-5.0)
[2025-05-12 10:46] LABS: BLOOD UREA NITROGEN 29.6 mg/dL (7-18); CALCIUM 9.7 mg/dL (8.5-10.1)
[2025-05-12 10:50] LABS: CREATININE 1.8 mg/dL (0.55-1.3)
[2025-05-12 10:51] LABS: TOT PROT 7.2 g/dl (6.4-8.2)
[2025-05-12 11:04] LABS: BILIRUBIN,TOTAL 0.4 mg/dL (0.2-1)
[2025-05-12] MEDS ORDERED: NICOTINE POLACRILEX 2 MG GUM BUC PRN (14:52)
[2025-05-12] MEDS: NICOTINE 21 MG/24 HOURS TOPICAL PATCH TD SCH (15:50)
[2025-05-12] MEDS: EMPAGLIFLOZIN (JARDIANCE) 10 MG TABLET PO SCH (16:24)
[2025-05-13 06:46] LABS: ABSOLUTE IMMATURE GRANULOCYTES 0.63 x10^3/uL (0.0-0.031); BASOPHILS # 0.09 x10^3/uL (0.01-0.08); EOSINOPHIL % 1.2 % (0.7-5.8); EOSINOPHILS # 0.15 x10^3/uL (0.04-0.36); HEMOGLOBIN 9.3 g/dL (11.2-15.7); MEAN CELL VOLUME 87.3 fl (79.4-94.8); MEAN PLT VOLUME 12.5 fl (9.4-12.3); MONOCYTE # 1.48 x10^3/uL (0.24-0.86); MONOCYTE % 11.6 % (4.7-12.5); PLATELET COUNT 231 x10^3/uL (182-369)
[2025-05-13 07:14] LABS: POTASSIUM 4.2 mmol/L (3.5-5.1)
[2025-05-13 07:16] LABS: CALCIUM 9.9 mg/dL (8.5-10.1)
[2025-05-13 07:17] LABS: ALBUMIN 2.8 g/dl (3.4-5.0); BLOOD UREA NITROGEN 32.8 mg/dL (7-18)
[2025-05-13 07:20] LABS: PHOSPHOROUS 4.6 mg/dL (2.5-4.9)
[2025-05-13 07:21] LABS: BILIRUBIN,TOTAL 0.3 mg/dL (0.2-1); TOT PROT 6.8 g/dl (6.4-8.2)
[2025-05-13] MEDS: FUROSEMIDE 40 MG TABLET (FP) PO SCH (09:32)
[2025-05-14] MEDS: EMPAGLIFLOZIN (JARDIANCE) 10 MG TABLET PO SCH (06:31)
[2025-05-14 11:31] LABS: HEMATOCRIT 32.8 % (34.1-44.9); HEMOGLOBIN 10.1 g/dL (11.2-15.7); MCHC 30.8 g/dl (32.2-35.5); MEAN PLT VOLUME 12.2 fl (9.4-12.3); PLATELET COUNT 255 x10^3/uL (182-369); RDW 15.1 % (12.4-16.6)
[2025-05-14] MEDS: predniSONE 20 MG TABLET (UD) PO SCH (11:57)
[2025-05-14 11:58] LABS: POTASSIUM 4.3 mmol/L (3.5-5.1)
[2025-05-14 12:00] LABS: ALBUMIN 2.9 g/dl (3.4-5.0); BLOOD UREA NITROGEN 36.7 mg/dL (7-18); CALCIUM 10.1 mg/dL (8.5-10.1)
[2025-05-14 12:01] LABS: MAGNESIUM 2.2 mg/dL (1.8-2.4)
[2025-05-14 12:03] LABS: CREATININE 1.8 mg/dL (0.55-1.3)
[2025-05-14 12:04] LABS: PHOSPHOROUS 3.9 mg/dL (2.5-4.9)
[2025-05-14 12:05] LABS: BILIRUBIN,TOTAL 0.2 mg/dL (0.2-1); TOT PROT 7.4 g/dl (6.4-8.2)
[2025-05-15] MEDS: AZITHROMYCIN 250 MG TABLET PO SCH (09:27)
[2025-05-15 10:39] LABS: HEMOGLOBIN 10.2 g/dL (11.2-15.7)
[2025-05-15 10:40] LABS: HEMATOCRIT 33.8 % (34.1-44.9); MCHC 30.2 g/dl (32.2-35.5); MEAN CELL VOLUME 85.4 fl (79.4-94.8); MEAN PLT VOLUME 13.1 fl (9.4-12.3); PLATELET COUNT 188 x10^3/uL (182-369)
[2025-05-15 10:56] LABS: POTASSIUM 4.4 mmol/L (3.5-5.1)
[2025-05-15 10:58] LABS: CALCIUM 10.6 mg/dL (8.5-10.1)
[2025-05-15 10:59] LABS: BLOOD UREA NITROGEN 42.3 mg/dL (7-18)
[2025-05-15 11:03] LABS: BILIRUBIN,TOTAL 0.2 mg/dL (0.2-1); TOT PROT 7.6 g/dl (6.4-8.2)
[2025-05-15 14:55] VITALS: BMI 45.4
[2025-05-15] MEDS: ACETAMINOPHEN 325 MG TABLET (FP) PO ONE (15:36)
[2025-05-16 11:04] VITALS: BP 120/50; PULSE 78; RESP 19; TEMP 97.5
== END 2025-05-16 11:07 | disposition home health service (06) | DRG 189 ==
LOC: JER 12:37 → JERBED 15:05 → OBSVTOIN 15:53 → J4W 20:44
PROVIDERS: ADMIT Internal Medicine; ATTEND Internal Medicine
DX: J96.22 Acute and chronic respiratory failure with hypercapnia (principal); I50.33 Acute on chronic diastolic (congestive) heart failure; J18.9 Pneumonia, unspecified organism; I13.0 Hypertensive heart and chronic kidney disease with heart failure and stage 1 through stage 4 chronic kidney disease, or unspecified chronic kidney disease; Z68.42 Body mass index [BMI] 45.0-49.9, adult; J44.1 Chronic obstructive pulmonary disease with (acute) exacerbation; J44.0 Chronic obstructive pulmonary disease with (acute) lower respiratory infection; C64.9 Malignant neoplasm of unspecified kidney, except renal pelvis; J96.21 Acute and chronic respiratory failure with hypoxia; E11.22 Type 2 diabetes mellitus with diabetic chronic kidney disease; Z85.528 Personal history of other malignant neoplasm of kidney; E66.01 Morbid (severe) obesity due to excess calories; F17.210 Nicotine dependence, cigarettes, uncomplicated; N18.9 Chronic kidney disease, unspecified; E78.5 Hyperlipidemia, unspecified
CPT/HCPCS: 0241U-QW; 36415; 36600; 71045-TC-FY; 76604; 80053; 82803; 82962; 83605; 83735; 83880; 84100; 84484; 85025; 85027; 85610; 85730; 87899; 93005; 93010; 93308; 94640; 94660; 97116-GP; 97162-GP; 99285-25; G0378